=== PATIENT | female | born 1955 ===

== ENCOUNTER 2020-10-24 12:51 | Day surgery (SDC) | payer BC ==
[~2020-10-24] VITALS: Ht 152.4 cm; Wt 61.9 kg
[2020-10-24] VITALS (13 sets, daily range): BP systolic 83–162; BP diastolic 57–87; PULSE 73–92; TEMP 97.7–98.3
[2020-10-24 12:04] LABS: HEMATOCRIT 38.4 % (37.0-47.0); HEMOGLOBIN 12.5 g/dl (12.5-16.0); MEAN CELL VOLUME 87 fl (80.0-100.0); MEAN CORPUSCULAR HEMOGLOBIN 28 pg (27.0-31.0); MEAN CORPUSCULAR HGB CONC 33 g/dl (33.0-37.0); PLATELET COUNT 209 K/mm3 (130-400); REDCELL DISTRIBUTION WIDTH-CV 12.5 % (11.5-14.5)
[2020-10-24 12:07] LABS: PROTHROMBIN TIME 10.7 SECONDS (9.7-12.8)
[2020-10-24 12:08] LABS: CALCIUM 9.5 mg/dL (8.4-10.2); CREATININE, serum 0.69 (0.52-1.25); POTASSIUM 4.4 mmol/L (3.4-5.0)
[2020-10-24 12:10] LABS: PARTIAL THROMBOPLASTIN TIME 29.5 SECONDS (26.0-37.0)
[~2020-10-24 12:51] MED LIST: ASPIRIN E.C. 8181 MG PO; CENTRUM1 TA1; D3-5050000 IU PO; LIPITOR20 MG PO; OMEGA-3 1000 MG1 CAP PO
--- NOTE | 2020-10-24 13:00 | NUR ---
SEE MERGE DOCUMENTATION FOR MEDICATION ADMINISTRATION AND INTRA/POST PROCEDURE SEDATION ASSESSMENTS.
--- NOTE | 2020-10-24 18:31 | NUR ---
Pt's radial band removed, no bleeding noted at catheter insertion site. covered with bandaid. No C/O pain at this time. VS have been stable, Pt eating well.
--- NOTE | 2020-10-24 19:45 | NUR ---
Resting in bed. Assessment complete. Lungs clear. Heart sounds normal. Bowels active x4. Pulses present throughout. No edema noted. INT left hand without complications. Denies pain. Denies needs at this time. Right radial site. CDI. Will continue to monitor.
[2020-10-25 04:41] VITALS: BP 115/56; PULSE 77; TEMP 97.3
--- NOTE | 2020-10-25 06:35 | NUR ---
Patient had uneventful night. Right radial site CDI. Denies needs this AM. Call light in reach.
--- NOTE | 2020-10-25 07:10 | NUR ---
Report given to JOVI Drew
[2020-10-25 08:11] VITALS: BP 148/67; PULSE 78; TEMP 97.9
--- NOTE | 2020-10-25 08:15 | NUR ---
Pt awake and alert upon entry, sitting on recliner in room, covering on right radial site remains CDI. Shift assessment compleyte, left Pt sitting in recliner call light in reach.
[2020-10-25] MEDS ORDERED: BRILINTA90 MG PO (09:02)
--- NOTE | 2020-10-25 12:00 | NUR ---
Pt discharged to home, discussed discharge packet with Pt. Pt escorted to entrance by PCT, Pt left with sig other via private transportation.
== END 2020-10-25 12:00 | disposition home or self-care (01) ==
LOC: COL.CAR 12:51 → MEDICAL 12:51 → COL.CAR 10-25 12:00
PROVIDERS: Internal Medicine Cardiovascular Disease
DX: I25.119 Atherosclerotic heart disease of native coronary artery with unspecified angina pectoris (principal); Z79.82 Long term (current) use of aspirin; Z79.899 Other long term (current) drug therapy
CPT/HCPCS: OP; C1725; C1769; C1874; C1887; C9600; J1644; J2250; J3010; J7030